=== PATIENT | female | born 1960 | race Caucasian/White ===

== ENCOUNTER 2020-08-28 11:27 | Outpatient (REF) | payer OTHER, SELFPAY ==
[2020-08-28 13:48] LABS: Hematocrit 27.2 % (37-47); Hemoglobin 8.8 g/dl (12.0-16.0); Mean Corpuscular HGB Conc 32.4 g/dl (31.0-35.0); Mean Corpuscular Hemoglobin 31.1 pg (27.0-33.0); Mean Corpuscular Volume 96.1 fL (80-98); Mean Platelet Volume 11.9 fL (9.4-12.3); Platelet Count 429 X10*3/uL (160-400); Red Blood Count 2.83 X10*6/uL (4.20-5.50)
[2020-08-28 14:11] LABS: Alanine Aminotransferase 10 U/L (0-31); Albumin Level 3.1 g/dL (3.5-5.0); Alkaline Phosphatase 52 U/L (39-117); Aspartate Amino Transferase 10 U/L (5-31); Bilirubin Direct 0.3 mg/dL (0.0-0.5); Bilirubin Total 0.7 mg/dL (0.0-1.0); Iron 34 mcg/dL (30-160); Lipase 24 U/L (8-78); Percent Iron Saturation 18 % (15-50); Total Iron Binding Capacity 190 mcg/dL (228-428); Total Protein 5.8 g/dL (6.5-8.0); Unsaturated Iron Binding 156 ug/dL
[2020-08-28 14:32] LABS: Ferritin 496 ng/mL (10-250)
[2020-08-28 14:59] LABS: Folate 4.6 ng/mL (> or = 4.0)
== END 2020-08-28 11:28 | disposition home or self-care (01) ==
LOC: HO.10HDL 11:27
PROVIDERS: Visit Provider Internal Medicine Gastroenterology
DX: D64.9 Anemia, unspecified (principal)
CPT/HCPCS: 36415; 80076; 82728; 82746; 83540; 83690; 85027

== ENCOUNTER 2020-09-06 07:52 | Outpatient (REF) | payer OTHER, SELFPAY ==
--- NOTE | 2020-09-06 | US_ITS ---
EXAMINATION: US ABDOMEN COMPLETE CLINICAL INFORMATION: Anemia. COMPARISON: None TECHNIQUE: Real-time imaging of the abdominal viscera. FINDINGS: PANCREAS: Normal. ABDOMINAL AORTA: The proximal, mid, and distal segments are normal in caliber. INFERIOR VENA CAVA: Visualized portions are normal. LIVER: There is some mild diffuse increased echogenicity of the liver consistent with fatty infiltration. No focal hepatic lesion. There is no intrahepatic biliary duct dilatation seen. GALLBLADDER: The gallbladder wall is thickened to 6 mm in diameter. No fluid within the wall or pericholecystic fluid is appreciated. Within the gallbladder there is sludge as well as a 1 cm nonshadowing solid-appearing region which may represent a sludge ball or possible noncalcified gallstone. The gallbladder is physiologically distended without evidence of stones, polyps or pericholecystic fluid. COMMON BILE DUCT: Normal in caliber measuring 0.6 cm in diameter. RIGHT KIDNEY: Normal. No hydronephrosis. No renal calculi or focal parenchymal lesions. The kidney measures 11.2 cm in maximum dimension. LEFT KIDNEY: There is some limited evaluation of the left kidney due to large body habitus. There is question of approximately 2 cm avascular mildly hypoechoic region about the renal pelvis on provided films for which further evaluation with CT or MRI is suggested. No hydronephrosis. No renal calculi. The kidney measures 11.9 cm in maximum dimension. SPLEEN: Normal. The spleen measures 7.2 cm in maximum dimension. FREE FLUID: None. US/US abdomen complete IMPRESSION: Thickened gallbladder wall without pericholecystic fluid. Sludge within the gallbladder with question noncalcified gallstone or sludge ball. These findings may be related to chronic cholelithiasis. Question left kidney solid lesion for which further evaluation with CT or MRI is recommended.
== END 2020-09-06 07:53 | disposition home or self-care (01) ==
LOC: HO.HMGCX 07:52
PROVIDERS: PCP Internal Medicine; Visit Provider Internal Medicine Gastroenterology
DX: D64.9 Anemia, unspecified (principal)
CPT/HCPCS: 76700

== ENCOUNTER 2020-10-03 08:00 | Day surgery (SDC) | payer OTHER, SELFPAY ==
[2020-09-25 14:16] VITALS: BMI 43.4
--- NOTE | 2020-10-02 08:39 | HO.ANESPROP2 ---
Documented by User: Meghnaher Dasilvaney 10/02/20 08:42 HPI - Anesthesia Eval Consult details Narrative: 59yo F for Upper Endoscopy [facility] Past Medical History Medical History Anemia Depression GERD (gastroesophageal reflux disease) Hiatal hernia History of 2019 novel coronavirus disease (COVID-19) History of ETOH abuse Hx of falling Hx of fracture of tibia Hypertension Hypothyroid Obesity JESSICA (obstructive sleep apnea) Surgical History Surgical History History of lumpectomy of right breast Hx of colonoscopy Hx of esophagogastroduodenoscopy Social History Social History Are you a primary acute care occupational therapist to a significant other at home: No Do you presently have visiting nurse or other home services: Yes Smoking Status: Current every day smoker Packs Per Day: 0.5 Cigarettes Per Day: 10.0 Years Smoked: 14 Smoked in Last 30 Days: Yes Patient Interested in Nicotine Replacement: No Patient Given Instructions on How to Stop Smoking: Yes Date Education Initiated: 09/25/20 Second Hand Smoke Exposure: No Use of substances other than those prescribed or required for medical reasons: No Have you been hit, kicked, punched, or otherwise hurt by someone within the past year? If so, by whom?: No Advance Directives: No Advance Directives Information Provided: No Advance Directives on File: No Recently lost weight without trying: No Meds Allergies Allergy/AdvReac Type Severity Reaction Status Date / Time lisinopril Allergy Unknown Verified 09/27/20 09:54 naproxen [From Aleve] Allergy Swelling Verified 09/25/20 14:15 Home Medications Medication Instructions Recorded Confirmed Type bupropion HCl 2 tab PO DAILY 09/27/20 09/27/20 History cholecalciferol (vitamin D3) 25 mcg PO DAILY 09/27/20 09/27/20 History [Vitamin D3] ferrous sulfate [iron] 325 mg PO DAILY 09/27/20 09/27/20 History furosemide 1 tab PO DAILY 09/27/20 09/27/20 History gabapentin 1 cap PO TID 09/27/20 09/27/20 History ipratropium bromide INTRANASAL 09/27/20 History methocarbamol 2 tab PO BID 09/27/20 09/27/20 History nisoldipine 1 tab PO DAILY 09/27/20 09/27/20 History omeprazole cap PO 09/27/20 History pyridoxine (vitamin B6) [Vitamin 50 mg PO DAILY 09/27/20 09/27/20 History B-6] tamsulosin 2 cap PO DAILY 09/27/20 09/27/20 History tizanidine 1 cap PO TID PRN 09/27/20 09/27/20 History tramadol 1 tab PO BID PRN 09/27/20 09/27/20 History Exam Exam Date and Time: October 02, 2020 0839 Height,Weight and Vital Signs: Height 5 ft 4 in Weight 114.759 kg Pertinent Lab Results Pertinent Lab Results: Laboratory Tests 08/28/20 11:40 WBC 6.0 Hgb 8.8 L Hct 27.2 L Plt Count 429 H Assessment and Plan Assessment Anesthesia Assessment: Chart Reviewed Documented by User: Srikanth Lemus MD 10/03/20 08:27 [facility] Past Medical History Medical History Anemia Depression GERD (gastroesophageal reflux disease) Hiatal hernia History of 2019 novel coronavirus disease (COVID-19) History of ETOH abuse Hx of falling Hx of fracture of tibia Hypertension Hypothyroid Obesity JESSICA (obstructive sleep apnea) Surgical History Surgical History History of lumpectomy of right breast Hx of colonoscopy Hx of esophagogastroduodenoscopy Social History Social History Are you a primary acute care occupational therapist to a significant other at home: No Do you presently have visiting nurse or other home services: Yes Smoking Status: Current every day smoker Packs Per Day: 0.5 Cigarettes Per Day: 10.0 Years Smoked: 14 Smoked in Last 30 Days: Yes Patient Interested in Nicotine Replacement: No Patient Given Instructions on How to Stop Smoking: Yes Date Education Initiated: 09/25/20 Second Hand Smoke Exposure: No Use of substances other than those prescribed or required for medical reasons: No Have you been hit, kicked, punched, or otherwise hurt by someone within the past year? If so, by whom?: No Advance Directives: No Advance Directives Information Provided: No Advance Directives on File: No Recently lost weight without trying: No Meds Allergies Allergy/AdvReac Type Severity Reaction Status Date / Time lisinopril Allergy Unknown Verified 09/27/20 09:54 naproxen [From Aleve] Allergy Swelling Verified 09/25/20 14:15 Home Medications Medication Instructions Recorded Confirmed Type bupropion HCl 2 tab PO DAILY 09/27/20 09/27/20 History cholecalciferol (vitamin D3) 25 mcg PO DAILY 09/27/20 09/27/20 History [Vitamin D3] ferrous sulfate [iron] 325 mg PO DAILY 09/27/20 09/27/20 History furosemide 1 tab PO DAILY 09/27/20 09/27/20 History gabapentin 1 cap PO TID 09/27/20 09/27/20 History ipratropium bromide INTRANASAL 09/27/20 History methocarbamol 2 tab PO BID 09/27/20 09/27/20 History nisoldipine 1 tab PO DAILY 09/27/20 09/27/20 History omeprazole cap PO 09/27/20 History pyridoxine (vitamin B6) [Vitamin 50 mg PO DAILY 09/27/20 09/27/20 History B-6] tamsulosin 2 cap PO DAILY 09/27/20 09/27/20 History tizanidine 1 cap PO TID PRN 09/27/20 09/27/20 History tramadol 1 tab PO BID PRN 09/27/20 09/27/20 History Exam Airway Mallampati Class: III TM Dist: >3cm Neck ROM: Full Loose/Missing/Broken Teeth: No Heart: RRR Lungs: NL Other: AO Assessment and Plan Assessment Anesthesia Assessment: Anesthesia Plan Discussed and Chart Reviewed Final Anesthetic Review NPO: Yes ASA Class: III Final Preanesthetic Review: No Changes in Pt Med Stat, Meds/Allgs Chart Reviewed, Consent Obtained/Reviewed and Anes Risks/Benef Reviewed Patient Risk: Intermediate Procedure Risk: Low Anesthetic Plan Anesthetic Plan: MAC: Disposition: Standard PACU
--- NOTE | 2020-10-03 08:44 | MHC.SHP ---
Pre-Procedural Eval Section B Chief Complaint: Anemia Details of Present Illness: see H&P no changes Relevant Family History (Specify if Yes): No Relevant Social History: Alcohol Use (see H&P) Present Medications: see Short Stay Collaborative assessment Medical History: No relevant PMH (See h&p) History of Previous Operations: No relevant previous surgery Allergies: Allergies Allergy/AdvReac Type Severity Reaction Status Date / Time lisinopril Allergy Unknown Verified 09/27/20 09:54 naproxen [From Aleve] Allergy Swelling Verified 09/25/20 14:15 Review of Systems Sugical H&P ROS: Negative: Constitution, Cardiovascular, Respiratory, Neurological, Psychiatric, Hem-Onc, Allergic/Immunologic, Gastrointestinal, Genitourinary, Musculoskeletal, Integumentary, Endocrine and Eyes/Ears/Nose/Throat Exam Surgical H&P Exam: Normal: HEENT, Normal: Heart, Normal: Lungs, Normal: Extremities, Normal: Abdomen, Normal: Skin and Normal: Neurological Plan Diagnosis/Plan: Unchanged I have reviewed the history and physical and performed a pertinent physical examination on my patient. No changes have occurred unless specified.
[2020-10-03 08:51] VITALS: BP 136/89; PULSE 86; RESP 18; TEMP 36.4; O2SAT 100
[2020-10-03] MEDS: Lactated Ringers 1,000 ML 100 ML IVCONT (08:57)
[2020-10-03 09:15] VITALS: BP 121/77; PULSE 88; RESP 18; TEMP 36.2; O2SAT 99
--- NOTE | 2020-10-03 09:22 | PM.OP ---
Brief Operative Note Date of Service: 10/03/20 Pre-op diagnosis: anemia Post-op diagnosis: other (gastritis) Procedure: egd Surgeon: Colin Salcedo Anesthesia: MAC Estimated blood loss (mL): 5 Pathology: other (duodenal, antral egj biopsies) Condition: stable Disposition: PACU
[2020-10-03 09:30] VITALS: BP 125/83; PULSE 86; RESP 14; TEMP 36.2; O2SAT 100
--- NOTE | 2020-10-03 09:33 | OP_ITS ---
SURGEON: Colin Salcedo MD INDICATIONS: Anemia. PREOPERATIVE DIAGNOSIS: POSTOPERATIVE DIAGNOSIS: PROCEDURE PERFORMED: ESTIMATED BLOOD LOSS: COMPLICATIONS: ANESTHESIA: ASSISTANTS: SPECIMENS: PROCEDURE: Upper endoscopy with biopsy. MEDICATIONS: Monitored anesthesia care. DESCRIPTION OF PROCEDURE: History and physical performed. The risks and benefits of the procedure were explained to the patient. Informed consent was obtained. The patient was placed in the left lateral decubitus position. The Olympus video gastroscope was introduced into the esophagus, stomach, and duodenum. Examination was performed. The scope was removed. She tolerated the procedure well and was taken to Recovery in stable condition. FINDINGS: Esophagus: The esophagus showed no esophagitis. There was an irregular EG junction that was biopsied. Stomach: The stomach showed no evidence of masses, ulcers, or polyps. There was some focal gastritis in the cardia with no active bleeding. Biopsies were obtained from the antrum. Duodenum: The bulb and second portion were normal. Biopsies were obtained from the second portion. IMPRESSION: Gastritis. RECOMMENDATION: 1. Follow up the biopsy results. 2. Continued avoidance of alcohol. MD SHAN Melgar/SCOTT / [id number]
--- NOTE | 2020-10-03 09:56 | HO.POSTANES ---
Post Anesthesia Evaluation Post Anesthesia Evaluation Vital Signs: Vital Signs Temp Pulse Resp BP Pulse Ox 10/03/20 09:30 97.2 F 86 14 125/83 100 10/03/20 09:15 97.2 F 88 18 121/77 99 10/03/20 08:51 97.6 F 86 18 136/89 100 Anesthesia: Monitored Mental Status: Awake Pain Control: Satisfactory Nausea/Vomiting: None Hydration: Adequate Anesthesia-Related Issues: No Anes. Related Issues
== END 2020-10-03 10:00 | disposition home or self-care (01) ==
PROVIDERS: PCP Internal Medicine; Visit Provider Internal Medicine Gastroenterology
PROC: 0DJ08ZZ Inspection of Upper Intestinal Tract, Via Natural or Artificial Opening Endoscopic (ICD-10-PCS; CPT 43235; principal; 2020-10-03 09:20)
DX: D64.9 Anemia, unspecified (principal); K29.50 Unspecified chronic gastritis without bleeding; K21.9 Gastro-esophageal reflux disease without esophagitis; K76.0 Fatty (change of) liver, not elsewhere classified; I10 Essential (primary) hypertension; R19.5 Other fecal abnormalities; Z86.19 Personal history of other infectious and parasitic diseases; F17.210 Nicotine dependence, cigarettes, uncomplicated; Z79.899 Other long term (current) drug therapy; Z88.8 Allergy status to other drugs, medicaments and biological substances
CPT/HCPCS: 43239; 88305; 88342